=== PATIENT | male | born 1965 | race African-American/Black ===

== ENCOUNTER 2018-08-31 21:23 | Emergency (ER) | payer MEDICAID, MEDICARE ==
[~2018-08-31] VITALS: Ht 175.3 cm; Wt 68.0 kg
[~2018-08-31 21:23] MED LIST: ALLOPURINOL100 M1 ORAL; AMBIEN10 MG ORAL; ATENOLOL100 MG ORAL; ATENOLOL50 MG ORAL; ATORVASTATIN CA10 MG ORAL; COLACE100 MG ORAL; COLCRYS0.6 M1 PO; DIAZEPAM10 MG ORAL; DOXYCYCLINE MO100 MG ORAL; INDOCIN25 MG ORAL; INDOCIN50 MG PO; INDOMETHACIN75 MG ORAL; KEFLEX500 MG ORAL; KLONOPIN1 MG ORAL; LITHIUM CARBON300 MG ORAL; LORAZEPAM1 MG ORAL; METHOCARBAMOL750 MG ORAL; MOM30 ML ORAL; NAPROXEN500 M2 ORAL; NORCO 10/3251 EA ORAL; NORCO 5-325 TA1 EACH ORAL; OMEPRAZOLE40 M1 ORAL; OXYCODONE-ACET1 EAC3 ORAL; PERCOCET 10-321 EAC1 PO; PERCOCET 5-3251 EACH ORAL; ROBAXIN-750750 MG PO; SEROQUEL200 MG ORAL; TEMAZEPAM15 MG ORAL; UNOBMED; VICODIN HP 10-1 EACH ORAL
[2018-08-31 21:43] VITALS: BP 138/83
[2018-08-31] MEDS ORDERED: Ketorolac 30mg Inj IV ONE (22:30)
[2018-08-31 22:49] LABS: BASOPHILS % (AUTO) 0.7 % (0.0-2.0); EOSINOPHILS % (AUTO) 0.8 % (0.0-3.0); HEMATOCRIT 39.6 % (42.0-52.0); HEMOGLOBIN 13.7 G/DL (14.2-18.0); LYMPHOCYTES % (AUTO) 21.9 % (20.0-45.0); MEAN CORPUSCULAR VOLUME 87 FL (80-99); MONOCYTES % (AUTO) 5.7 % (1.0-10.0); PLATELET COUNT 232 K/UL (150-450); RED BLOOD COUNT 4.55 M/UL (4.70-6.10); RED CELL DISTRIBUTION WIDTH 13.7 % (11.6-14.8); WHITE BLOOD COUNT 6.9 K/UL (4.8-10.8)
[2018-08-31 23:10] LABS: ANION GAP 12 mmol/L (5-15); BLOOD UREA NITROGEN 20 mg/dL (7-18); CARBON DIOXIDE 25 MMOL/L (21-32); CHLORIDE 105 MMOL/L (98-107); POTASSIUM 3.6 MMOL/L (3.5-5.1); SODIUM 142 MMOL/L (136-145)
[2018-08-31 23:15] LABS: ALANINE AMINOTRANSFERASE 70 U/L (12-78); ALBUMIN 3.8 G/DL (3.4-5.0); ALKALINE PHOSPHATASE 72 U/L (46-116); ASPARTATE AMINO TRANSFERASE 34 U/L (15-37); BILIRUBIN,TOTAL 0.9 MG/DL (0.2-1.0)
[2018-08-31 23:33] LABS: APPEARANCE,URINE CLEAR; BILIRUBIN, URINE NEGATIVE (NEGATIVE); GLUCOSE, URINE (UA) NEGATIVE (NEGATIVE); KETONES,URINE 1+ (NEGATIVE); LEUKOCYTE ESTERASE ,URINE NEGATIVE (NEGATIVE); NITRITE,URINE NEGATIVE (NEGATIVE); PH,URINE 5 (4.5-8.0); UROBILINOGEN,URINE NORMAL MG/DL (0.0-1.0)
[2018-08-31 23:35] LABS: COLOR,URINE YELLOW; PROTEIN,URINE NEGATIVE (NEGATIVE)
--- NOTE | 2018-09-01 05:15 | Emergency Room Report ---
History of Present Illness General Chief Complaint: Back Pain-No Injury Source: Patient Present Illness HPI Patient complains of low back pain, leg weakness and incontinence. He says he was recently admitted to [facility] for several days where he believes he underwent an MRI of his head and his lower back. He also complains of bipolar disorder and problems with his memory which he calls dementia. He denies suicidal or homicidal ideation at this time. When he is discharged from [facility] he went to his nieces. He says that that living situation no longer is working. He is on the streets at this time. Denies alcohol or drugs. He has fallen and scraped his knee. He states his vaccinations are up to date. Denies head trauma. No fevers, chills, cough, sore throat, NVD, dysuria. He has been seen here for lower back pain in the past as well as L ankle and leg pain. H/O gouty arthritis, CHF. In past he was in hospice care, SNFs and also had lived with his brother. Allergies: Coded Allergies: No Known Allergies (Unverified , 12/01/13) Patient History Past Medical History: see triage record Social History: Reports: smoking, drug use Social History Narrative On the streets now but previously was staying with his niece Reviewed Nursing Documentation: PMH: Agreed; PSxH: Agreed Nursing Documentation-PMH Hx Cardiac Problems: Yes - chf Hx Hypertension: Yes Hx Pacemaker: No Hx Asthma: No Hx COPD: No Hx Diabetes: No Hx Cancer: No Hx Gastrointestinal Problems: Yes - acid reflux Hx Dialysis: No Hx Neurological Problems: Yes - gout, Hx Cerebrovascular Accident: No Hx Seizures: No Review of Systems All Other Systems: negative except mentioned in HPI Physical Exam Vital Signs Date Time Temp Pulse Resp B/P (MAP) Pulse Ox O2 Delivery O2 Flow Rate FiO2 08/31/18 21:25 97.3 104 16 138/83 98 Room Air Sp02 EP Interpretation: reviewed, normal General Appearance: no apparent distress, GCS 15, other - dishevelled Head: normocephalic Eyes: bilateral eye normal inspection, bilateral eye Scleral Injection ENT: moist mucus membranes Neck: supple Respiratory: lungs clear, normal breath sounds Cardiovascular #1: regular rate, rhythm Cardiovascular #2: 2+ radial (R) Gastrointestinal: normal inspection, normal bowel sounds, non tender, no mass, non-distended Musculoskeletal: normal range of motion, other - walks with cane due to L ankle pain, tender - lumbar area, not bony tenderness Neurologic: alert, oriented x3, 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 Symptom complex disconcerting as he claims incontinence. Based on exam, no bony tenderness exhibited and SLR negative with good reflexes distally. He is sleepy and needs lab evaluation, observation and repeat neurologic/back evaluations. Labs + for amphetamine, benzos. Normal WBC, min low H/H. BUN 20. After sleeping the patient is more alert. He is able to ambulate using his cane to the bathroom. He has no episodes of incontinence here. There is no point tenderness in his back. Straight leg raise is negative bilaterally. Toes are downgoing and reflexes are all symmetrical. He has a slight amount of tenderness on the left ankle. Discussed need for follow up with his private MD and also for seeking help with amphetamine abuse. He says he might go to one of the outpatient psychiatric facilities he is aware of. Denies HI or SI. Patient stable for outpatient observation and treatment. Laboratory Tests Test 08/31/18 22:35 08/31/18 23:16 White Blood Count 6.9 K/UL (4.8-10.8) Red Blood Count 4.55 M/UL (4.70-6.10) L Hemoglobin 13.7 G/DL (14.2-18.0) L Hematocrit 39.6 % (42.0-52.0) L Mean Corpuscular Volume 87 FL (80-99) Mean Corpuscular Hemoglobin 30.1 PG (27.0-31.0) Mean Corpuscular Hemoglobin Concent 34.6 G/DL (32.0-36.0) Red Cell Distribution Width 13.7 % (11.6-14.8) Platelet Count 232 K/UL (150-450) Mean Platelet Volume 7.8 FL (6.5-10.1) Neutrophils (%) (Auto) 71.0 % (45.0-75.0) Lymphocytes (%) (Auto) 21.9 % (20.0-45.0) Monocytes (%) (Auto) 5.7 % (1.0-10.0) Eosinophils (%) (Auto) 0.8 % (0.0-3.0) Basophils (%) (Auto) 0.7 % (0.0-2.0) Sodium Level 142 MMOL/L (136-145) Potassium Level 3.6 MMOL/L (3.5-5.1) Chloride Level 105 MMOL/L (98-107) Carbon Dioxide Level 25 MMOL/L (21-32) Anion Gap 12 mmol/L (5-15) Blood Urea Nitrogen 20 mg/dL (7-18) H Creatinine 1.0 MG/DL (0.55-1.30) Estimate Glomerular Filtration Rate > 60 mL/min (>60) Glucose Level 84 MG/DL (74-106) Calcium Level 9.0 MG/DL (8.5-10.1) Total Bilirubin 0.9 MG/DL (0.2-1.0) Aspartate Amino Transferase (AST) 34 U/L (15-37) Alanine Aminotransferase (ALT) 70 U/L (12-78) Alkaline Phosphatase 72 U/L (46-116) Total Protein 7.5 G/DL (6.4-8.2) Albumin 3.8 G/DL (3.4-5.0) Globulin 3.7 g/dL Albumin/Globulin Ratio 1.0 (1.0-2.7) Salicylates Level 0.6 ug/mL (2.8-20) L Acetaminophen Level < 2 MCG/ML (10-30) L Serum Alcohol < 3 mg/dL Urine Color Yellow Urine Appearance Clear Urine pH 5 (4.5-8.0) Urine Specific [place] 1.025 (1.005-1.035) Urine Protein Negative (NEGATIVE) Urine Glucose (UA) Negative (NEGATIVE) Urine Ketones 1+ (NEGATIVE) H Urine Blood Negative (NEGATIVE) Urine Nitrite Negative (NEGATIVE) Urine Bilirubin Negative (NEGATIVE) Urine Urobilinogen Normal MG/DL (0.0-1.0) Urine Leukocyte Esterase Negative (NEGATIVE) Urine Opiates Screen Negative (NEGATIVE) Urine Barbiturates Screen Negative (NEGATIVE) Phencyclidine (PCP) Screen Negative (NEGATIVE) Urine Amphetamines Screen Positive (NEGATIVE) H Urine Benzodiazepines Screen Positive (NEGATIVE) H Urine Cocaine Screen Negative (NEGATIVE) Urine Marijuana (THC) Screen Negative (NEGATIVE) Last Vital Signs Date Time Temp Pulse Resp B/P (MAP) Pulse Ox O2 Delivery O2 Flow Rate FiO2 09/01/18 06:48 97.4 103 17 114/78 100 Room Air Status: improved Disposition: HOME, SELF-CARE Condition: Improved Scripts Ibuprofen* (MOTRIN*) 600 Mg Tablet 600 MG ORAL Q6H PRN for For Pain, #20 TAB Prov: Jose Ma MD 09/01/18 Referrals: NON PHYSICIAN (PCP) Jose Ma MD Sep 01, 2018 05:15
[2018-09-01] MEDS ORDERED: IBUPROFEN600 MG ORAL (05:17)
[2018-09-01 06:48] VITALS: BP 114/78
== END 2018-09-01 06:50 | disposition home or self-care (01) ==
LOC: EMR 22:09
DX: G89.29 Other chronic pain (principal); M54.5 Low back pain; F19.10 Other psychoactive substance abuse, uncomplicated; I10 Essential (primary) hypertension; I50.9 Heart failure, unspecified; Z59.0 Homelessness
CPT/HCPCS: 36415; 80053; 80307; 81003; 85025; 96374; 99284; G0480; J1885; 80329